=== PATIENT | female | born 1950 | race Caucasian/White ===

== ENCOUNTER 2022-07-23 09:27 | Outpatient (REF) | payer BC, SELFPAY ==
[2022-07-23 11:50] LABS: Erythrocyte Sedimentation Rate 7 MM/HR (0-20)
== END 2022-07-23 09:28 | disposition home or self-care (01) ==
LOC: HO.10HDL 09:27
PROVIDERS: Visit Provider Internal Medicine Rheumatology
DX: R51.9 Headache, unspecified (principal)
CPT/HCPCS: 36415; 85652; 86140